=== PATIENT | male | born 1955 ===

== ENCOUNTER → 2018-06-21 13:48 | Outpatient (REF) | payer OTHER, SELFPAY ==
[2018-06-21 14:22] LABS: Hemoglobin A1C% w Est Avg Glu 5.3 % (4.0-6.0)
[2018-06-21 14:25] LABS: Alanine Aminotransferase 44 IU/L (21-72); Albumin 4.3 g/dL (3.5-5.0); Albumin Globulin Ratio 1.2 (1.0-2.8); Alkaline Phosphatase 71 U/L (38-126); Aspartate Aminotransferase 38 IU/L (17-59); BUN Creatinine Ratio 25.7 (6-22); Bilirubin Total 0.7 mg/dL (0.2-1.3); Blood Urea Nitrogen 18 mg/dL (9-20); Calcium 9.5 mg/dL (8.4-10.2); Carbon Dioxide 31 mmol/L (22-32); Chloride 99 mmol/L (98-107); Cholesterol 266 mg/dL (140-199); Estimated Glomerular Filt Rate > 60.0 mL/min (>60); Globulin 3.5 g/dL (1.7-4.1); Glucose 104 mg/dL (80-110); HDL Cholesterol 61 mg/dL (40-60); HEMOLYSIS < 15 (0-50); LDL Cholesterol Calculated 170 mg/dL (<100); Potassium 5.2 mmol/L (3.4-5.1); Sodium 139 mmol/L (137-145); Total Protein 7.8 g/dL (6.3-8.2); Triglycerides 173 mg/dL (35-150)
[2018-06-21 14:51] LABS: Prostate Specific Antigen 0.575 ng/mL (0.10-4.00)
== END ==
LOC: LAB 13:48
PROVIDERS: Visit Provider Family Medicine
DX: Z12.5 Encounter for screening for malignant neoplasm of prostate (principal); Z13.6 Encounter for screening for cardiovascular disorders; Z13.1 Encounter for screening for diabetes mellitus; Z13.228 Encounter for screening for other metabolic disorders
CPT/HCPCS: 36415; 80053; 80061; 83036; 84153